=== PATIENT | female | born 1965 | race Caucasian/White ===

== ENCOUNTER 2019-01-14 23:48 | Emergency (ER) | payer MEDICARE ==
[2019-01-14 23:57] VITALS: BP 118/67; PULSE 71; RESP 18; TEMP 98.1
[2019-01-15] MEDS ORDERED: KETOROLAC 30 MG/ML 1 ML VIAL IM STA (00:27)
--- NOTE | 2019-01-15 00:42 | XR ---
EXAMINATION TYPE: XR hand complete RT DATE OF EXAM: 01/15/2019 COMPARISON: NONE HISTORY: Finger injury TECHNIQUE: 3 views FINDINGS: I see no fracture nor dislocation. Metacarpals are intact. Joint spaces are normal. There a re no erosions. IMPRESSION: Negative right hand exam. No fracture seen. Middle finger is intact.
--- NOTE | 2019-01-15 00:55 | ED ---
Upper Extremity HPI - General Chief Complaint: Extremity Injury, Upper Stated Complaint: Finger Injury Time Seen by Provider: 01/15/19 00:03 Source: patient, family Mode of arrival: ambulatory Limitations: physical limitation - History of Present Illness Initial Comments: 53-year-old female patient presents to the emergency department today for evaluation of injury to the right hand. Patient states that she was attempting to open a ladder became frustrated and slammed it down with her hand. States this causes pain to the right middle MCP joint. Patient states that the pain has been worsening over the last 2 hours. States it feels like it is crackling when she bends it. Denies any history of injury to the hand. Denies taking any medication for her symptoms. Denies any other injuries or concerns. Patient denies any headache, neck pain, back pain, chest pain, shortness of breath, dizziness, weakness, abdominal pain, nausea, vomiting, or difficulties with bowel movements or urination. - Related Data Allergies Allergy/AdvReac Type Severity Reaction Status Date / Time levofloxacin Allergy Hallucinati Verified 01/14/19 23:58 ons Sulfa (Sulfonamide Allergy Anaphylaxis Verified 01/14/19 23:58 Antibiotics) Review of Systems ROS Statement: Those systems with pertinent positive or pertinent negative responses have been documented in the HPI. ROS Other: All systems not noted in ROS Statement are negative. Past Medical History Past Medical History: No Reported History History of Any Multi-Drug Resistant Organisms: None Reported Past Surgical History: Adenoidectomy, Appendectomy, Hysterectomy, Tonsillectomy Additional Past Surgical History / Comment(s): NECK SX CERVICAL 3, 4, LEFT FOOT Past Psychological History: No Psychological Hx Reported Smoking Status: Former smoker Past Alcohol Use History: None Reported Past Drug Use History: None Reported General Exam Limitations: physical limitation General appearance: alert, in no apparent distress, other (This is a well- developed, well-nourished adult female patient in no acute distress. Vital signs upon presentation are temperature 98.1F, pulse 71, respirations 18, blood pressure 118/67, pulse ox 100% on room air.) Respiratory exam: Present: normal lung sounds bilaterally. Absent: respiratory distress, wheezes, rales, rhonchi, stridor Cardiovascular Exam: Present: regular rate, normal rhythm, normal heart sounds. Absent: systolic murmur, diastolic murmur, rubs, gallop, clicks Extremities exam: Present: full ROM, tenderness (Over the right third MCP joint), normal capillary refill, other (Swelling over the right third MCP joint. Skin is otherwise pink, warm, dry. Cap refills less than 3 seconds. Radial pulses 2+ and equal bilaterally.). Absent: normal inspection, pedal edema, joint swelling, calf tenderness Neurological exam: Present: alert, oriented X3, CN II-XII intact Psychiatric exam: Present: normal affect, normal mood Skin exam: Present: warm, dry, intact, normal color. Absent: rash Course Vital Signs 01/14/19 23:53 Temperature 98.1 F Pulse Rate 71 Respiratory 18 Rate Blood Pressure 118/67 O2 Sat by Pulse 100 Oximetry Medical Decision Making - Medical Decision Making 53-year-old female patient presented to the emergency department today for evaluation of right hand pain especially over the right third MCP joint. Physical examination did reveal some mild soft tissue swelling. There was full range of motion. Neurovascular status intact. X-ray was obtained and showed no acute abnormalities. Patient was diagnosed with sprain. She is educated regarding rest, ice, elevation. She is instructed take anti-inflammatory medication for pain relief. She is instructed to have repeat x-rays performed in 7-10 days if pain symptoms persist. She is instructed to follow-up with her primary care physician for recheck in 1-2 days. Return parameters were discussed in detail. She verbalizes understanding and agrees with this plan. - Radiology Data Radiology results: report reviewed, image reviewed 3 views of the right hand are obtained. Report was reviewed in its entirety. Impression by Dr. Cabello shows negative right hand exam. No fracture seen. Middle finger is intact. Disposition Clinical Impression: Sprain of right hand Disposition: HOME SELF-CARE Condition: Good Instructions (If sedation given, give patient instructions): Hand Sprain (ED) Additional Instructions: Use Elian wrap for comfort and support. Take [id number] ibuprofen for pain control. Apply ice, keep the hand elevated. Follow-up with your primary care physician for recheck in 1-2 days. Return to the emergency department for any new, worsening, or concerning symptoms. Is patient prescribed a controlled substance at d/c from ED?: No Referrals: Deven Parmar MD [Primary Care Provider] - 1-2 days Time of Disposition: 00:55
== END 2019-01-15 01:13 | disposition home or self-care (01) ==
LOC: EC 23:48
DX: S63.91XA Sprain of unspecified part of right wrist and hand, initial encounter (principal); Z88.1 Allergy status to other antibiotic agents; Z88.2 Allergy status to sulfonamides; Z87.891 Personal history of nicotine dependence; W22.8XXA Striking against or struck by other objects, initial encounter
CPT/HCPCS: 73130; 99283; 96372; J1885

== ENCOUNTER → 2019-11-12 | Outpatient (CLI) | payer MEDICARE ==
--- NOTE | 2019-11-12 17:55 | CT ---
EXAMINATION TYPE: CT cervical spine wo con DATE OF EXAM: 11/12/2019 COMPARISON: None HISTORY: continued pain post surgery with bilateral radiation to the extremities CT DLP: 302.5 mGycm Automated exposure control for dose reduction was used. TECHNIQUE: CT scan of the cervical spine is obtained without contrast, axial images are obtained, sa gittal and coronal reformatted images are also reviewed. FINDINGS: Anterior fixation of C4-C6 with vertebral body screws, anterior fixation plate, and interbo dy fusion devices. No evidence of hardware fracture or significant loosening around the vertebral bod y screws. There is moderate to severe left C5-C6 neural foramina narrowing. There is no definitive ca nal stenosis. There is streak artifact somewhat limiting evaluation of the canal at C4-5 and C5-6. No evidence of acute fracture or subluxation. Cervical spine is visualized in its entirety from C1 thro ugh upper thoracic levels, demonstrates satisfactory alignment. Prevertebral soft tissue appears with in normal limits. The C1-C2 articulation is within normal limits on the coronal images. IMPRESSION: Postsurgical anterior fixation and fusion changes of C4-C6, with CT evidence of hardware failure. There is moderate to severe left C5-C6 neural foramina narrowing. No definitive canal stenos is.
== END | disposition home or self-care (01) ==
LOC: RADCTMAIN 15:19
PROVIDERS: ATTEND Neurological Surgery
DX: Z47.89 Encounter for other orthopedic aftercare (principal); M48.02 Spinal stenosis, cervical region; Z98.1 Arthrodesis status
CPT/HCPCS: 72125

== ENCOUNTER → 2020-04-27 | Outpatient (CLI) | payer MEDICARE ==
--- NOTE | 2020-04-27 18:05 | MR ---
EXAMINATION TYPE: MR lumbar spine wo con DATE OF EXAM: 04/27/2020 COMPARISON: None HISTORY: Lower back pain into both legs, more so on right, Also shoots up middle of spine x several y ears TECHNIQUE: Multiplanar, multisequence images of the lumbar spine were acquired. L1-L2: Normal disc appearance without desiccation. No herniation, protrusion or disc bulging. No ca nal stenosis is present. Foramina are patent bilaterally. L2-L3: Minimal posterior broad-based disc bulge causes slight anterior mass effect on the thecal sac. There is some facet arthropathy change present. L3-L4: Posterior extension endplate disc complex causes minimal anterior mass effect on the thecal sa c. No significant foraminal encroachment. There is some facet arthropathy change present with hypertr ophy of ligamentum flavum. L4-L5: Minimal posterior broad-based disc bulge causes slight anterior mass effect on the thecal sac, circumferential extension is present towards the foramina without significant foraminal encroachment . There is facet arthropathy change with hypertrophy ligamentum flavum causing some posterior lateral mass effect on the thecal sac. L5-S1: Normal disc appearance without desiccation. No herniation, protrusion or disc bulging. No ca nal stenosis is present. Foramina are patent bilaterally. There is facet arthropathy change. Lumbar segments are intact. No paraspinal masses are identified. Conus medullaris has a normal appe arance. There is a levoscoliosis centered at the upper lumbar spine. There is multilevel spondylosis with minimal endplate discogenic marrow signal change. Loss of disc height signal greatest at L2-3, L 3-4, minimal grade 1 anterolisthesis present at these levels. There is no significant spinal stenosis . The common bile duct appears dilated, there are dilated intrahepatic biliary ducts. Lung bases are cl ear. Gallbladder appears somewhat distended. IMPRESSION: Mild degenerative disc disease, facet arthropathy, there is a scoliosis. There is biliary ductal dila tation present, consider alternate dedicated imaging, gastroenterology consult.
== END | disposition home or self-care (01) ==
LOC: RADMRIMAIN 16:37
PROVIDERS: ATTEND Neurological Surgery
DX: M51.16 Intervertebral disc disorders with radiculopathy, lumbar region (principal); M47.26 Other spondylosis with radiculopathy, lumbar region; M41.86 Other forms of scoliosis, lumbar region
CPT/HCPCS: 72148

== ENCOUNTER 2024-11-04 08:41 | Day surgery (SDC) | payer MEDICARE ==
[2024-11-03 11:47] VITALS: BMI 17.9
[~2024-11-04 08:41] MED LIST: LIDOCAINE 1% (10MG/ML) FOR IV START INTRADERMA PRN
[2024-11-04 09:04] VITALS: TEMP 97.2
[2024-11-04] MEDS: IV FLUID CONTINUATION 1,000 ML IV ONE (09:04)
[2024-11-04] MEDS: LACTATED RINGERS 1,000 ML IV SCH (09:05)
[2024-11-04] MEDS: ONDANSETRON 4 MG/2 ML VIAL IVP STA (09:10)
[2024-11-04] MEDS ORDERED: PROPOFOL 10 MG/ML 20 ML VIAL IV ONE (09:33)
--- NOTE | 2024-11-04 09:52 | P.PCN ---
Date of Procedure: 11/04/24 Procedure(s) Performed: BRIEF HISTORY: Patient is a 59-year-old pleasant white female scheduled for an elective colonoscopy as a part of screening for colon cancer/positive Cologuard. PROCEDURE PERFORMED: Colonoscopy. PREOPERATIVE DIAGNOSIS: Screening for colon cancer/positive Cologuard. IV sedation per Anesthesia. PROCEDURE: After informed consent was obtained, the patient, was brought into the endoscopy unit. IV sedation was administered by Anesthesia under continuous monitoring. Digital rectal examination was normal. Initially the Olympus CF-160 flexible video colonoscope was then inserted in the rectum, gradually advanced into the cecum without any difficulty. Careful examination was performed as the scope was gradually being withdrawn. Ileocecal valve and the appendiceal orifice were visualized and appeared normal. Prep was poor in several areas of the colon. Thorough irrigation was performed.. Mucosa of the cecum, ascending colon, transverse colon, descending colon, sigmoid colon, and rectum appeared normal. Retroflexion was performed in the rectum and no lesions were seen. The patient tolerated the procedure well. IMPRESSION: Normal-appearing colon from rectum to cecum with no evidence of colorectal neoplasia Poor prep in several areas of the colon. RECOMMENDATIONS: Findings of this examination were discussed with the patient as well as her family.. She was advised to have repeat colonoscopy in 5 years because of the poor prep.
[2024-11-04 10:01] VITALS: PULSE 67
[2024-11-04 10:22] VITALS: BP 138/83; RESP 16
== END 2024-11-04 10:50 | disposition home or self-care (01) ==
LOC: ORWHC2ENDO 08:41
PROVIDERS: ATTEND Internal Medicine Gastroenterology
DX: K92.2 Gastrointestinal hemorrhage, unspecified (principal); K58.9 Irritable bowel syndrome, unspecified; C76.0 Malignant neoplasm of head, face and neck; J45.909 Unspecified asthma, uncomplicated; M54.2 Cervicalgia; G43.909 Migraine, unspecified, not intractable, without status migrainosus; Z88.1 Allergy status to other antibiotic agents; Z88.2 Allergy status to sulfonamides; Z79.51 Long term (current) use of inhaled steroids; Z79.899 Other long term (current) drug therapy
CPT/HCPCS: 45378; J2405; J2704